=== PATIENT | female | born 1995 | race African-American/Black ===

== ENCOUNTER 2018-02-27 14:49 | Emergency (ER) | payer OTHER ==
[~2018-02-27] VITALS: Ht 162.6 cm; Wt 95.3 kg
[2018-02-27 15:15] VITALS: BP 113/77
== END 2018-02-27 20:00 | disposition admitted as inpatient to this hospital (09) ==
LOC: ERH 14:49
DX: R10.9 Unspecified abdominal pain (principal); H57.12 Ocular pain, left eye; R51 Headache